=== PATIENT | female | born 1955 | race Caucasian/White ===

== ENCOUNTER → 2016-10-26 | Outpatient (CLI) | payer BC, OTHER, SELFPAY ==
--- NOTE | 2016-10-26 09:55 | REPMRS ---
Patient History The patient states she has not had a clinical breast exam in over a year. Patient is postmenopausal. Family history of ovarian cancer in maternal aunt under age 50. Digital Mammo Screening Bilat: October 26, 2016 - Exam #: [id number] Bilateral CC and MLO view(s) were taken. Technologist: Celia Walker, Technologist Prior study comparison: September 15, 2015, right breast digital mammo diagnostic unilateral performed at [facility]. September 08, 2015, bilateral digital mammo screening bilat performed at [facility]. May 15, 2012, digital bilateral screening mammo, [facility]. FINDINGS: There are scattered fibroglandular densities. There has been no change in the appearance of the mammogram from the prior studies. There is a mild amount of scattered fibroglandular density which is fairly symmetric. There is no interval development of dominant mass, architectural distortion, or clustered microcalcification suggestive of malignancy. ASSESSMENT: BI-RADS/ACR category 1 mammogram. Negative. Recommendation Routine screening mammogram in 1 year (for women over age 40). This mammogram was interpreted with the aid of an FDA-approved computer-aided dectection system. Electronically Signed By: Julio Infante MD 10/26/16 [id number]
== END ==
LOC: M RAD 08:16
PROVIDERS: ATTEND Nurse Practitioner Adult Health
DX: Z12.31 Encounter for screening mammogram for malignant neoplasm of breast (principal); Z78.0 Asymptomatic menopausal state

== ENCOUNTER → 2016-10-26 | Outpatient (CLI) | payer BC ==
--- NOTE | 2016-10-30 10:28 | DEXA ---
AP SPINE L1 - L4 1.259 0.5 1.9 LT FEMUR TOTAL 1.002 0.0 1.0 RT FEMUR TOTAL 1.104 0.8 1.8 TOTAL BODY TOTAL OTHER DUAL FEMUR FRAX* ASSESSMENT Risk factors: None. 10 year probability of fracture Major osteoporotic fracture 6.3 % Hip fracture 0.3 % COMMENTS: Normal bone densitometry of the spine and hips. The density of the spine is increased 8.7% since 03/21/2006. The density of the left hip has decreased 7.2% since 03/21/2006. The density of the right hip has increased 0.5% since 03/21/2006. FOLLOW-UP: Recommendation for the next bone density exam: 5 years. DANIELLE
== END ==
LOC: M WHC 10:18
PROVIDERS: ATTEND Nurse Practitioner Adult Health
DX: Z78.0 Asymptomatic menopausal state (principal); M81.0 Age-related osteoporosis without current pathological fracture